=== PATIENT | female | born 1985 | race Caucasian/White ===

== ENCOUNTER 2020-12-29 21:36 | Emergency (ER) | payer OTHER ==
[~2020-12-29] VITALS: Ht 165.1 cm; Wt 99.3 kg
[~2020-12-29 21:36] MED LIST: ADVAIR 100-501 EACH; FLEXERIL; GLUCOPHAGE500 MG; NAPROSYN500 MG PO; NEXIUM40 MG; NORCO 5-325 TA1 EACH PO; SYNTHROID50 MCG; VICODIN; XYZAL5 MG
[2020-12-29] MEDS ORDERED: MYLAN (21:52)
[2020-12-29] MEDS ORDERED: PAROXETINE7.5 MG PO (21:53)
[2020-12-29] MEDS ORDERED: BRIO (21:53)
[2020-12-29 23:16] VITALS: BP 122/82
== END 2020-12-29 23:19 | disposition home or self-care (01) ==
LOC: M.ERS 21:36
DX: G43.909 Migraine, unspecified, not intractable, without status migrainosus (principal); J45.909 Unspecified asthma, uncomplicated; K21.9 Gastro-esophageal reflux disease without esophagitis; F32.9 Major depressive disorder, single episode, unspecified; F41.9 Anxiety disorder, unspecified; Z79.899 Other long term (current) drug therapy; Z90.49 Acquired absence of other specified parts of digestive tract